=== PATIENT | male | born 1960 | race Caucasian/White ===

== ENCOUNTER → 2020-08-15 | Outpatient (CLI) | payer OTHER ==
[~2020-08-15] MED LIST: CETI10TA74 PO; LIDOCAINE WITH 8.4% SOD BICARB 3 ML DISP.SYRIN. INJ ONE; LIDOCAINE WITH 8.4% SOD BICARB 3 ML DISP.SYRIN. ONE; LISI20TA18 PO
--- NOTE | 2020-08-15 12:30 | NUR ---
Pt sent over from Dr Nam's office for US and possible drain. After US, pt brought to IR and Dr Guy drained 20cc of fluid from swollen, reddened site to R lower buttock. Pt alert and oriented, no sedation, tolerated without difficulty. Dressing applied and pt escorted out. Encouraged pt to f/u with Dr Nam. EVA RN
--- NOTE | 2020-08-15 15:09 | RAD ---
Ultrasound-guided aspiration, right gluteal abscess 08/15/2020 INDICATION: Subcutaneous abscess, right gluteal region Discussion: The procedure was explained in its entirety to the patient or the patients designated route service representative by a member of the treatment team, including a discussion of the risks, benefits and commonly accepted alternatives to the procedure, as well as the expected consequences of no therapy whatsoever. Discussion of the risks included, but was not limited to, those that are most frequent and those that are rare but possibly severe or life-threatening, as well as the possibility of unforeseen complications. All elements of maximal sterile barrier technique including the use of a cap, mask, sterile gown, sterile gloves, large sterile sheet, appropriate hand hygiene, and 2% chlorhexidine for cutaneous antisepsis (or acceptable alternative antiseptic per current guidelines) were followed for this procedure. Ultrasound demonstrates a complex fluid collection in the subcutaneous tissues of the right gluteal region. 1% lidocaine was administered for local anesthesia. A 5 Occitan sheath needle was advanced into this collection. Approximately 20 cc of bloody/purulent material was aspirated. This was sent for Gram stain and culture. Sterile dressings were applied. IMPRESSION: Ultrasound-guided aspiration of right gluteal, subcutaneous abscess
== END | disposition home or self-care (01) ==
LOC: US 11:39
PROVIDERS: ATTEND Family Medicine
DX: L02.31 Cutaneous abscess of buttock (principal); Z79.899 Other long term (current) drug therapy; Z88.1 Allergy status to other antibiotic agents
CPT/HCPCS: 10005; 76882; 87071; 87075; 87102; C1892; J3490; 87077

== ENCOUNTER → 2021-02-03 | Day surgery (SDC) | payer OTHER ==
[~2021-02-03] VITALS: Ht 182.9 cm; Wt 105.0 kg
[~2021-02-03] MED LIST changes: +CEPH500C PO; +LIDOCAINE 1%/EPI 1:100,000 20 ML VIAL. INJ ONE; -LIDOCAINE WITH 8.4% SOD BICARB 3 ML DISP.SYRIN. INJ ONE; -LIDOCAINE WITH 8.4% SOD BICARB 3 ML DISP.SYRIN. ONE; +TERB250T72 PO; +VALA500T9 PO
[2021-02-03 12:04] VITALS: BP 141/82
--- NOTE | 2021-02-03 13:03 | PDOC4 ---
Operative Note Operative Note Date: February 032020 at 1300 Preoperative diagnosis: Right buttock mass Postoperative diagnosis: Same Procedure: Excision of right buttock mass with half centimeter margin Surgeon: Raúl Specimen: Right buttock mass Dictation: Patient is a 60-year-old gentleman is complained of a painful nodule in his right buttocks. Procedure of excision was explained to the patient detail was benefits were also discussed including bleeding infection. Alte rnatives to this procedure also discussed with patient who seemed to understand and gave a verbal written consent had procedure performed. Patient was placed in the prone positioning and his right buttocks was prepped and draped in usual sterile fashion using ChloraPrep. Area around the mass was injected with 1% lidocaine with epinephrine once was completely anesthetized elliptical incision was made with 15 blade scalpel excising the mass was approximately 1 cm with a half a centimeter margin. Mass was sent for pathology. The wound was closed in a single layer 4-0 subcuticular Monocryl Mastisol Steri-Strips and island dressing were applied. Patient tolerated procedure well was discharged home in stable condition all sponge instrument needle counts listed as correct estimated blood loss less than 5 mL ANIRUDH SKY MD Feb 03, 2021 13:03
--- NOTE | 2021-02-03 13:04 | DISCH ---
DISCHARGE INSTRUCTIONS Condition on Discharge Condition on Discharge: Stable Activity After Discharge Activity Instructions for Disc: Activity as tolerated Diet after Discharge Diet after Discharge: Regular Wound Incision Care Other wound/incision instructi: May shower in 24 hours Contacting the after DC Call your doctor for: If your condition worsens Follow-Up Follow up with: Dr. Sky in 2 weeks ANIRUDH SKY MD Feb 03, 2021 13:04
--- NOTE | 2021-02-06 17:07 | PATHOLOGY ---
[facility] Accession Number: [id number] . 01 Material submitted: . buttock - RIGHT BUTTOCK MASS. Modifiers: right . 02 Diagnosis: Skin and subcutaneous tissue, right buttock mass excision: - Focal dermal and subcutaneous fibrosis and mild chronic inflammation. . ([facility]:mm; 02/06/2021) [facility] 02/06/2021 1339 Local . 02 Comment: There is no evidence of malignancy. . ([facility]:mm; 02/06/2021) . 02 Electronically signed: . Ricardo Cortés MD, Pathologist NPI- [id number] . 01 Gross description: . Received in formalin labeled "Ashok Ramirez, right buttock mass" is an ellipse of mckeon-white skin and underlying yellow-mckeon soft tissue measuring 1.5 x 0.4 cm and excised to a maximum depth of 1.4 cm. The external surface is inked black. The specimen is sectioned to reveal no discrete lesions. The specimen is entirely submitted in A1. ([facility]; 02/04/2021) [facility] 02/04/2021 0901 Local . 02 Pathologist provided ICD-10: L90.5, L98.9 . 02 CPT . 859715 Specimen Comment: A courtesy copy of this report has been sent to [phone], [phone] Specimen Comment: [id number] Specimen Comment: Report sent to / DR HERNÁNDEZ Specimen Comment: A duplicate report has been generated due to demographic updates. Performed at: [address], [place], [place] [id number] MD Krunal Escobedo MD Phone: [phone] Performed at: 02 [facility] [address] [place], [place] [id number] MD Ricardo Cortés MD Phone: [phone]
--- NOTE | 2021-02-14 08:58 | PDOC1 ---
History and Physical Date of Admission Date of Admission DATE: 02/03/21 TIME: 08:56 Identification/Chief Complaint Chief Complaint Mass of the buttocks Source Source: Patient History of Present Illness History of Present Illness 60-year-old male with complaints of a mass on his buttocks that has been painful and wishes to be removed Past Medical History Cardiovascular: No pertinent hx Pulmonary: No pertinent hx GI: No pertinent hx Heme/Onc: No pertinent hx Hepatobiliary: No pertinent hx Rheumatologic: No pertinent hx Infectious disease: No pertinent hx ENT: No pertinent hx Renal/: No pertinent hx Endocrine: No pertinent hx Dermatology: No pertinent hx Past Surgical History Past Surgical History: No pertinent history Family History Family History: No Significant Social History Smoke: No ALCOHOL: none Drugs: None Current Medications Current Medications Current Medications Lidocaine/ Epinephrine (LIDOCAINE 1%-EPI 1:100,000 Multi-Dose) 20 ml 1X ONCE INJ Last administered on 02/03/21at 12:48; Start 02/03/21 at 12:00; Stop 02/03/21 at 12:19; Status DC Lidocaine/ Epinephrine (LIDOCAINE 1%-EPI 1:100,000 Multi-Dose) 20 ml STK-MED ONCE INJ Last administered on 02/03/21at 12:48; Start 02/03/21 at 12:48; Stop 02/03/21 at 12:49; Status DC Active Scripts Active Reported Keflex (Cephalexin) 500 Mg Capsule 500 Mg PO QID Terbinafine Hcl 250 Mg Tablet 250 Mg PO DAILY Valacyclovir (Valacyclovir Hcl) 500 Mg Tablet 500 Mg PO DAILY Zyrtec (Cetirizine Hcl) 10 Mg Tablet 10 Mg PO DAILY Lisinopril 20 Mg Tablet 20 Mg PO DAILY Allergies Allergies: Coded Allergies: amoxicillin (Verified Allergy, Mild, stomach upset, 02/03/21) ciprofloxacin (Verified Allergy, Unknown, Hives, 02/03/21) ROS Skin: Yes Other (Mass on the buttocks) Physical Exam General: Alert, Oriented X3, Cooperative, No acute distress HEENT: Atraumatic, EOMI Lungs: Clear to auscultation, Normal air movement Heart: no murmurs Abdomen: Normal bowel sounds, Soft, No tenderness Extremities: No edema Skin: Other (1 cm mass on the buttocks) Neuro: Normal speech VTE Prophylaxis Ordered VTE Prophylaxis Devices: No VTE Pharmacological Prophylaxi: No Assessment/Plan Assessment/Plan Excision of buttocks mass Justifications for Admission Other Justification ANIRUDH SKY MD Feb 14, 2021 08:58
== END | disposition home or self-care (01) ==
LOC: SURG 11:37
PROVIDERS: ATTEND Surgery
DX: L90.5 Scar conditions and fibrosis of skin (principal); L98.9 Disorder of the skin and subcutaneous tissue, unspecified; L02.31 Cutaneous abscess of buttock; I10 Essential (primary) hypertension; Z79.899 Other long term (current) drug therapy; Z98.890 Other specified postprocedural states; Z88.1 Allergy status to other antibiotic agents; Z87.891 Personal history of nicotine dependence; Z72.89 Other problems related to lifestyle
CPT/HCPCS: 11402; 88305; J3490